=== PATIENT | female | born 2000 | race Caucasian/White ===

== ENCOUNTER 2019-08-01 08:43 | Emergency (ER) | payer MEDICAID ==
[~2019-08-01] VITALS: Ht 175.3 cm; Wt 123.0 kg
[2019-08-01] MEDS ORDERED: KETOROLAC 30MG/ML VIAL IV STA (13:26)
[2019-08-01 14:38] LABS: BASOPHILS % 0.8 % (0.0-2.0); EOSINOPHILS % 0.7 % (0.0-5.0); HEMATOCRIT. 40.4 % (36.0-48.0); HEMOGLOBIN. 13.6 g/dL (12.0-16.0); LYMPHOCYTES % 30.6 % (20.0-50.0); MEAN CORPUSCULAR HEMOGLOBIN 29.5 pg (28.0-32.0); MEAN CORPUSCULAR VOLUME 87.4 fL (81.0-99.0); MEAN PLATELET VOLUME 8.6 fl (7.4-10.4); MONOCYTES % 6.3 % (2.0-8.0); NEUTROPHILS % 61.6 % (40.0-76.0); PLATELET 222 x1000/uL (130-400); RED BLOOD CELL COUNT 4.61 mill/uL (4.2-5.4); RED CELL DISTRIBUTION WIDTH 14.2 % (11.6-14.6)
[2019-08-01 14:39] LABS: CHLORIDE 108 mEq/L (98-107)
[2019-08-01 16:52] VITALS: BP 145/89
== END 2019-08-01 16:59 | disposition home or self-care (01) ==
LOC: ER 08:43
DX: R07.89 Other chest pain (principal); E78.5 Hyperlipidemia, unspecified
CPT/HCPCS: 36415; 71045; 80053; 84484; 85025; 85379; 93005; 96374; 99284; J1885; Z7610